=== PATIENT | female | born 1980 | race Caucasian/White ===

== ENCOUNTER 2019-01-12 12:21 | Outpatient (CLI) | payer MEDICAID ==
--- NOTE | 2019-01-12 13:43 | ULT ---
OB ULTRASOUND: HISTORY: Size and dates. FINDINGS: A single viable intrauterine . Gestational age by ultrasound is 13 weeks 0 days. BPD: 13 weeks, 2 days HC: 13 weeks, 2 days AC: 12 weeks, 6 days FL: 12 weeks, 5 days Placenta: Anterior. Position: Transverse. Amniotic fluid: Adequate. heart rate: 158 b.p.m. Intracranial contents and stomach are imaged at this early stage. IMPRESSION: A 13-week 0-day gestational age by ultrasound. POS: OFF
== END 2019-01-12 12:22 | disposition home or self-care (01) ==
LOC: SCSULT 12:21
PROVIDERS: ATTEND Nurse Practitioner
DX: O09.91 Supervision of high risk pregnancy, unspecified, first trimester (principal); Z3A.13 13 weeks gestation of pregnancy
CPT/HCPCS: 76815

== ENCOUNTER 2019-03-06 11:00 | Outpatient (CLI) | payer OTHER ==
--- NOTE | 2019-03-06 12:11 | ULT ---
Obstetric sonogram HISTORY: evaluation. Second trimester gestation. FINDINGS: Single intrauterine gestation in breech presentation. Cervix is closed and 5.5 cm. Grade 0 placenta is anterior. No evidence of previa. Amniotic fluid is within normal limits. Four-chamber heart shows motion at 158 bpm. Three-vessel cord shows a normal insertion. spine and kidneys ar e intact as visualized. No gross intracranial abnormalities. Measurements are as follows: Biparietal diameter 20 weeks 4 days. Head circumference 19 weeks 5 days. Abdominal circumference 20 weeks 1 day. Femur length 20 weeks 3 days. Hadlock 29 percentile. Estimated date of delivery based on today's sonogram 07/24/2019. IMPRESSION: Single intrauterine gestation. Estimated gestational age 20 weeks 0 days. No significant abnormalities are demonstrated.
== END 2019-03-06 11:01 | disposition home or self-care (01) ==
LOC: SCSULT 11:00
PROVIDERS: ATTEND Obstetrics & Gynecology
DX: O09.92 Supervision of high risk pregnancy, unspecified, second trimester (principal); Z3A.20 20 weeks gestation of pregnancy
CPT/HCPCS: 76805

== ENCOUNTER 2019-05-13 09:56 | Outpatient (CLI) | payer OTHER ==
--- NOTE | 2019-05-13 11:47 | ULT ---
LIMITED OB ULTRASOUND: HISTORY: growth. FINDINGS: A single live intrauterine gestation is seen with measurements corresponding to an estimated gestatio nal age of 30 weeks 5 days and an ADAM of 07/17/2019. The estimated weight measures 1547 g or 3 lbs 7 oz (38% by Hadlock criteria). measurements are as follows: BPD: 7.76 cm (31 weeks 1 day) HC: 28.83 cm (31 weeks 6 days) AC: 26.90 cm (31 weeks 1 day) FL: 5.38 cm (28 weeks 4 days) heart rate measures 143 beats per minute. The placenta is anteriorly located. AKIRA measures 9.43 cm. position is cephalic. nose and lips are seen and appear within normal limits (not s een on last exam). IMPRESSION: Single live intrauterine at 30 weeks' 5 days' estimated gestational age and estimated date of delivery of 07/17/2019. POS: TELMA
== END 2019-05-13 09:57 | disposition home or self-care (01) ==
LOC: BICULT 09:56
PROVIDERS: ATTEND Nurse Practitioner
DX: O09.93 Supervision of high risk pregnancy, unspecified, third trimester (principal); Z3A.30 30 weeks gestation of pregnancy
CPT/HCPCS: 76815